=== PATIENT | male | born 1950 | race Caucasian/White ===

== ENCOUNTER 2017-03-30 19:07 | Emergency (ER) | payer MEDICARE, OTHER ==
[~2017-03-30] VITALS: Ht 172.7 cm; Wt 76.8 kg
[2017-03-30] MEDS ORDERED: ALEVE220 M1 PO (19:18)
[2017-03-30 20:34] VITALS: BP 154/88
== END 2017-03-30 20:34 | disposition home or self-care (01) ==
LOC: ED 19:07
DX: T15.01XA Foreign body in cornea, right eye, initial encounter (principal); X58.XXXA Exposure to other specified factors, initial encounter

== ENCOUNTER → 2017-10-04 | Outpatient (CLI) | payer MEDICARE, OTHER ==
[~2017-10-04] MED LIST: ALEVE220 M1 PO
== END ==
LOC: LAB 08:09
DX: E78.5 Hyperlipidemia, unspecified (principal)

== ENCOUNTER → 2018-08-29 | Outpatient (CLI) | payer MEDICARE, OTHER ==
[2018-08-29 09:35] LABS: HEMATOCRIT 48.7 % (42.0-52.0); HEMOGLOBIN 16.2 g/dL (13.5-18.0); MEAN CELL VOLUME 85 fl (78-100); MEAN CORPUSCULAR HEMOGLOBIN 28 pg (27-31); MEAN CORPUSCULAR HGB CONC 33 g/dL (33-37); MEAN PLATELET VOLUME 11.2 fl (7.4-10.4); PLATELET COUNT 202 K/mm3 (130-400); RED BLOOD COUNT 5.72 M/mm3 (4.20-5.60); RED CELL DISTRIBUTION WIDTH 15.2 % (11.5-14.5); WHITE BLOOD COUNT 6.2 K/mm3 (4.8-10.8)
[2018-08-29 09:49] LABS: CALCIUM 10.5 mg/dL (8.8-10.0); POTASSIUM 4.2 mmol/L (3.5-5.1); TOTAL BILIRUBIN 0.4 mg/dL (0.2-1.2); TOTAL PROTEIN 6.7 g/dL (6.2-8.1)
[2018-08-29 10:18] LABS: LYMPHOCYTE 27 % (20-51); MONOCYTE 13 % (3-10); NEUTROPHILS 58 % (42-75)
== END ==
LOC: LAB 09:18
PROVIDERS: Family Medicine
DX: Z00.00 Encounter for general adult medical examination without abnormal findings (principal); E78.5 Hyperlipidemia, unspecified

== ENCOUNTER → 2019-10-03 | Outpatient (CLI) | payer MEDICARE, OTHER ==
[2019-10-03 08:50] LABS: HEMATOCRIT 48.6 % (42.0-52.0); HEMOGLOBIN 16.5 g/dL (13.5-18.0); MEAN CELL VOLUME 87 fl (78-100); MEAN CORPUSCULAR HEMOGLOBIN 30 pg (27-31); MEAN CORPUSCULAR HGB CONC 34 g/dL (33-37); MEAN PLATELET VOLUME 10.9 fl (7.4-10.4); PLATELET COUNT 215 K/mm3 (130-400); RED BLOOD COUNT 5.59 M/mm3 (4.20-5.60); RED CELL DISTRIBUTION WIDTH 13.6 % (11.5-14.5); WHITE BLOOD COUNT 6.2 K/mm3 (4.8-10.8)
[2019-10-03 09:50] LABS: ALBUMIN 4.3 g/dL (3.4-4.8); POTASSIUM 4.3 mmol/L (3.5-5.1)
[2019-10-03 09:51] LABS: CALCIUM 9.9 mg/dL (8.3-10.5)
[2019-10-03 09:53] LABS: TOTAL PROTEIN 7.1 g/dL (6.2-8.1)
[2019-10-03 09:55] LABS: TOTAL BILIRUBIN 0.8 mg/dL (0.2-1.2)
[2019-10-03 11:36] LABS: LYMPHOCYTE 30 % (20-51); MONOCYTE 8 % (3-10); NEUTROPHILS 58 % (42-75)
== END ==
LOC: LAB 08:31
PROVIDERS: Family Medicine
DX: Z00.00 Encounter for general adult medical examination without abnormal findings (principal); E78.5 Hyperlipidemia, unspecified; R73.9 Hyperglycemia, unspecified

== ENCOUNTER → 2019-10-09 | Outpatient (CLI) | payer MEDICARE, OTHER | LOC: RAD 09:10 | DX: R29.898 Other symptoms and signs involving the musculoskeletal system (principal); R41.3 Other amnesia ==

== ENCOUNTER → 2019-10-16 | Outpatient (CLI) | payer MEDICARE, OTHER | LOC: CARDLAB 07:49 → CARDREHAB 07:54 | DX: R07.9 Chest pain, unspecified (principal) ==

== ENCOUNTER → 2019-12-19 | Outpatient (CLI) | payer MEDICARE, OTHER | LOC: RAD 12:12 | DX: M19.011 Primary osteoarthritis, right shoulder (principal) ==

== ENCOUNTER 2020-02-21 08:30 | Outpatient (RCR) | payer MEDICARE, OTHER ==
[2020-02-23] MEDS ORDERED: GOOD NEIGHBOR200 M1 PO (05:12)
[2020-02-23] MEDS ORDERED: XANAX0.5 M1 PO (05:13)
[2020-02-23] MEDS ORDERED: TYLENOL 8 HOUR650 M1 PO (05:14)
[2020-02-23] MEDS ORDERED: ZOFRAN ODT4 MG PO (11:18)
[2020-02-23] MEDS ORDERED: MECLIZINE PO (11:18)
[2020-02-23] MEDS ORDERED: ZITHROMAX Z PA250 MG PO (11:59)
[2020-02-23] MEDS ORDERED: PREDNISONE20 M1 PO (12:00)
== END 2020-04-13 | disposition home or self-care (01) ==
LOC: PT
DX: M25.511 Pain in right shoulder (principal)

== ENCOUNTER 2020-02-23 05:01 | Emergency (ER) | payer MEDICARE, OTHER ==
[~2020-02-23] VITALS: Ht 172.7 cm; Wt 71.4 kg
[2020-02-23] MEDS ORDERED: GOOD NEIGHBOR200 M1 PO (05:12)
[2020-02-23] MEDS ORDERED: XANAX0.5 M1 PO (05:13)
[2020-02-23] MEDS ORDERED: TYLENOL 8 HOUR650 M1 PO (05:14)
[2020-02-23 06:28] LABS: EOS % 0.1 % (0.0-4.0); HEMATOCRIT 44.6 % (42.0-52.0); HEMOGLOBIN 15.4 g/dL (13.5-18.0); LYMPH# 1.3 (1.50-4.00); MEAN CELL VOLUME 85 fl (78-100); MEAN CORPUSCULAR HEMOGLOBIN 30 pg (27-31); MEAN CORPUSCULAR HGB CONC 35 g/dL (33-37); MEAN PLATELET VOLUME 10.6 fl (7.4-10.4); MONO # 1.1 (0.20-0.80); NEU # 7.4 (1.40-6.50); PLATELET COUNT 180 K/mm3 (130-400); RED BLOOD COUNT 5.22 M/mm3 (4.20-5.60); RED CELL DISTRIBUTION WIDTH 13.2 % (11.5-14.5); WHITE BLOOD COUNT 9.8 K/mm3 (4.8-10.8)
[2020-02-23 06:47] LABS: POTASSIUM 4.4 mmol/L (3.5-5.1)
[2020-02-23 06:48] LABS: CALCIUM 9.3 mg/dL (8.3-10.5)
[2020-02-23] MEDS ORDERED: ZOFRAN ODT4 MG PO (11:18)
[2020-02-23] MEDS ORDERED: MECLIZINE PO (11:18)
[2020-02-23] MEDS ORDERED: ZITHROMAX Z PA250 MG PO (11:59)
[2020-02-23] MEDS ORDERED: PREDNISONE20 M1 PO (12:00)
[2020-02-23 12:22] VITALS: BP 126/79
== END 2020-02-23 12:19 | disposition home or self-care (01) ==
LOC: ED 05:01
PROVIDERS: Family Medicine
DX: U07.1 COVID-19 (principal); E86.9 Volume depletion, unspecified; F41.9 Anxiety disorder, unspecified; Z79.1 Long term (current) use of non-steroidal anti-inflammatories (NSAID)
CPT/HCPCS: J1885; J2405; J7030

== ENCOUNTER 2020-04-20 09:54 | Outpatient (RCR) | payer MEDICARE, OTHER ==
[~2020-04-20 09:54] MED LIST changes: +GOOD NEIGHBOR200 M1 PO; +MECLIZINE PO; +PREDNISONE20 M1 PO; +TYLENOL 8 HOUR650 M1 PO; +XANAX0.5 M1 PO; +ZITHROMAX Z PA250 MG PO; +ZOFRAN ODT4 MG PO
== END 2020-05-21 10:00 | disposition home or self-care (01) ==
LOC: PT 09:54
DX: M25.511 Pain in right shoulder (principal)

== ENCOUNTER → 2020-12-08 | Outpatient (CLI) | payer MEDICARE, OTHER ==
[2020-12-08 15:36] LABS: BASO # 0.03 (0.02-0.10); EOS # 0.15 (0.04-0.40); EOS % 2.3 % (0.0-4.0); HEMATOCRIT 46.9 % (42.0-52.0); HEMOGLOBIN 15.8 g/dL (13.5-18.0); MEAN CELL VOLUME 88 fl (78-100); MEAN CORPUSCULAR HEMOGLOBIN 30 pg (27-31); MEAN CORPUSCULAR HGB CONC 34 g/dL (33-37); MEAN PLATELET VOLUME 10.7 fl (7.4-10.4); MONO # 0.71 (0.20-0.80); NEU # 3.62 (1.40-6.50); PLATELET COUNT 196 K/mm3 (130-400); RED BLOOD COUNT 5.32 M/mm3 (4.20-5.60); RED CELL DISTRIBUTION WIDTH 13.1 % (11.5-14.5); WHITE BLOOD COUNT 6.6 K/mm3 (4.8-10.8)
[2020-12-08 16:02] LABS: ALBUMIN 3.9 g/dL (3.4-4.8)
[2020-12-08 16:03] LABS: CALCIUM 10.3 mg/dL (8.3-10.5)
[2020-12-08 16:05] LABS: TOTAL PROTEIN 6.8 g/dL (6.2-8.1)
[2020-12-08 16:06] LABS: TOTAL BILIRUBIN 0.4 mg/dL (0.2-1.2)
== END ==
LOC: LAB 15:04
PROVIDERS: Family Medicine
DX: Z00.00 Encounter for general adult medical examination without abnormal findings (principal); E78.5 Hyperlipidemia, unspecified; R73.9 Hyperglycemia, unspecified; U07.1 COVID-19

== ENCOUNTER → 2021-04-13 | Outpatient (CLI) | payer MEDICARE, OTHER | LOC: LAB 16:03 | DX: Z20.822 Contact with and (suspected) exposure to COVID-19 (principal) ==

== ENCOUNTER → 2023-06-27 | Outpatient (CLI) | payer MEDICARE, OTHER ==
[2023-06-27 08:00] LABS: BASO # 0.02 K/mm3 (0.02-0.10); EOS # 0.14 K/mm3 (0.04-0.40); EOS % 2.6 % (0.0-4.0); HEMATOCRIT 47.1 % (42.0-52.0); HEMOGLOBIN 15.8 g/dL (13.5-18.0); MEAN CELL VOLUME 90 fl (78-100); MEAN CORPUSCULAR HEMOGLOBIN 30 pg (27-31); MEAN CORPUSCULAR HGB CONC 34 g/dL (33-37); MEAN PLATELET VOLUME 10.6 fl (7.4-10.4); MONO # 0.57 K/mm3 (0.20-0.80); NEU # 2.93 K/mm3 (1.40-6.50); PLATELET COUNT 177 K/mm3 (130-400); RED BLOOD COUNT 5.26 M/mm3 (4.20-5.60); WHITE BLOOD COUNT 5.5 K/mm3 (4.8-10.8)
[2023-06-27 08:02] LABS: ALBUMIN 3.9 g/dL (3.4-4.8)
[2023-06-27 08:03] LABS: CALCIUM 9.7 mg/dL (8.3-10.5)
[2023-06-27 08:04] LABS: TOTAL PROTEIN 6.4 g/dL (6.2-8.1)
[2023-06-27 08:06] LABS: TOTAL BILIRUBIN 0.6 mg/dL (0.2-1.2)
== END ==
LOC: LAB 07:38
PROVIDERS: Nurse Practitioner
DX: Z00.00 Encounter for general adult medical examination without abnormal findings (principal); Z11.59 Encounter for screening for other viral diseases

== ENCOUNTER → 2023-09-16 | Outpatient (CLI) | payer MEDICARE, OTHER | LOC: RAD 09:16 | DX: M79.674 Pain in right toe(s) (principal); M79.675 Pain in left toe(s) ==